=== PATIENT | male | born 1965 | race Caucasian/White ===

== ENCOUNTER 2017-03-19 18:55 | Emergency (ER) | payer OTHER ==
[~2017-03-19] VITALS: Ht 182.9 cm; Wt 64.0 kg
[2017-03-19 19:10] VITALS: BP 100/62
[2017-03-19] MEDS ORDERED: KETOROLAC 30 MG/1 ML IM ONE (19:30)
[2017-03-19] MEDS ORDERED: DIAZEPAM 5 MG TABLET PO ONE (19:30)
[2017-03-19] MEDS ORDERED: KETOROLAC 30 MG/1 ML ONE (20:04)
== END 2017-03-19 20:23 | disposition home or self-care (01) ==
LOC: ED 20:20
DX: S16.1XXA Strain of muscle, fascia and tendon at neck level, initial encounter (principal); M54.12 Radiculopathy, cervical region; Z87.891 Personal history of nicotine dependence; Z90.49 Acquired absence of other specified parts of digestive tract; X58.XXXA Exposure to other specified factors, initial encounter; Y93.89 Activity, other specified; Y92.89 Other specified places as the place of occurrence of the external cause; Y99.8 Other external cause status
CPT/HCPCS: 72050; 96372; 99284; J1885

== ENCOUNTER 2017-03-23 14:04 | Emergency (ER) | payer OTHER ==
[~2017-03-23] VITALS: Ht 182.9 cm; Wt 66.5 kg
[2017-03-23 14:11] VITALS: BP 114/74
== END 2017-03-23 16:30 | disposition home or self-care (01) ==
LOC: ED 16:02
DX: M62.838 Other muscle spasm (principal); M54.2 Cervicalgia
CPT/HCPCS: 99283

== ENCOUNTER 2018-08-30 06:56 | Emergency (ER) | payer OTHER ==
[~2018-08-30] VITALS: Ht 182.9 cm; Wt 63.9 kg
[2018-08-30 06:58] VITALS: BP 133/81
[2018-08-30] MEDS ORDERED: CARBAMIDE PEROXIDE EAR DROPS 6.5%, 15ML ONE (07:09)
[2018-08-30] MEDS ORDERED: CARBAMIDE PEROXIDE EAR DROPS 6.5%, 15ML RIGHT EAR ONE (07:30)
--- NOTE | 2018-08-30 09:28 | NUR ---
Patient given discharge instructions and they have confirmed that they understand the instructions. Patient ambulatory with steady gait. Pt left with dc paperwork, prescription, and all personal belongings. Pt encouraged to return if symptoms worsen or change.
== END 2018-08-30 09:31 | disposition home or self-care (01) ==
LOC: ED 09:25
DX: H61.21 Impacted cerumen, right ear (principal); H60.501 Unspecified acute noninfective otitis externa, right ear
CPT/HCPCS: 69209; 99283

== ENCOUNTER 2019-07-26 16:50 | Emergency (ER) | payer OTHER ==
[~2019-07-26] VITALS: Ht 182.9 cm; Wt 63.5 kg
[2019-07-26 16:54] VITALS: BP 159/89
== END 2019-07-26 18:05 | disposition home or self-care (01) ==
LOC: ED 17:40
DX: K40.91 Unilateral inguinal hernia, without obstruction or gangrene, recurrent (principal)
CPT/HCPCS: 99281